=== PATIENT | female | born 1975 | race Two or more races ===

== ENCOUNTER 2024-05-20 18:59 | Emergency (ER) | payer MEDICAID ==
[~2024-05-20] VITALS: Ht 152.4 cm; Wt 68.2 kg
[2024-05-20 19:28] LABS: BASOPHILS # (AUTO) 0.1 X10'3 (0-0.2); BASOPHILS % (AUTO) 0.7 % (0-1); EOSINOPHILS # (AUTO) 0.3 X10'3 (0-0.9); EOSINOPHILS % (AUTO) 3.6 % (0-6); HEMOGLOBIN 13.7 g/dl (12.0-16.0); LYMPHOCYTES % (AUTO) 31.5 % (21-51); MEAN CORPUSCULAR HEMOGLOBIN 31.4 PG (27.0-31.0); MEAN CORPUSCULAR HGB CONC 34.2 g/dL (33.0-36.5); MEAN CORPUSCULAR VOLUME 91.8 FL (78-98); MEAN PLATELET VOLUME 8.4 FL (7.4-10.4); MONOCYTES # (AUTO) 0.7 X10'3 (0-0.9); MONOCYTES % (AUTO) 7.4 % (2-12); NEUTROPHILS # (AUTO) 5.3 X10'3 (1.8-7.7); NEUTROPHILS % (AUTO) 56.8 % (42-75); PLATELET COUNT 336 X10'3 (140-440); RED BLOOD COUNT 4.36 X10'6 (4.20-5.60); RED CELL DISTRIBUTION WIDTH 13.5 % (11.5-14.5); WHITE BLOOD COUNT 9.4 X10'3 (4.5-11.0)
[2024-05-20 19:37] LABS: ALBUMIN 3.6 G/DL (3.4-5.0); ANION GAP 10 (8-16); BLOOD UREA NITROGEN 15 MG/DL (7-18); BUN/CREATININE RATIO 16.5 (10.0-20.0); CALCIUM 9.3 MG/DL (8.5-10.1); CHLORIDE 104 MMOL/L (99-107); CREATININE 0.91 MG/DL (0.40-0.90); GLUCOSE 129 MG/DL (70-104); POTASSIUM 4.1 MMOL/L (3.5-5.1); PRO BRAIN NATRIURETIC PEPTIDE 33 PG/ML (0-125); SODIUM 142 MMOL/L (135-145); TOTAL CARBON DIOXIDE 28.1 MMOL/L (24-32); eCRCL 53 ML/MIN; eGFR 65 ML/MIN
[2024-05-20] MEDS: LIDOcaine 2% Viscous 15ml cup MM ONE (20:43)
[2024-05-20] MEDS: mag hydrox/Alum hydrox/simeth 30ml oral suspension PO ONE (20:43)
[2024-05-20] MEDS: ondansetron 4mg rapidly disintigrating tab PO ONE (20:43)
[2024-05-20] MEDS: HYDROcodone/acetaminophen 5mg/325mg tablet PO ONE (20:44)
[2024-05-20] MEDS ORDERED: iohexol 350MG/ML 100ml bottle IV ONE (20:46)
[2024-05-20] MEDS ORDERED: PANT20TA2 PO (23:07)
[2024-05-20 23:08] VITALS: BP 135/84; PULSE 72; RESP 22; TEMP 98.6; O2SAT 96
== END 2024-05-20 23:36 | disposition home or self-care (01) ==
LOC: ER 19:00
DX: R07.89 Other chest pain (principal); R91.8 Other nonspecific abnormal finding of lung field; I10 Essential (primary) hypertension; E78.00 Pure hypercholesterolemia, unspecified
CPT/HCPCS: 36415; 71045; 71275; 80048; 83880; 84484; 85025; 93005; 99285; Q9967